=== PATIENT | female | born 1985 | race American Indian/Alaskan Native ===

== ENCOUNTER 2021-03-26 12:21 | Emergency (ER) | payer SELFPAY ==
--- NOTE | 2021-03-26 14:01 | Emergency Department Report ---
ED General Adult HPI - General Chief complaint: Upper Respiratory Infection Stated complaint: HEADACHE/BODY ACHE/NASAL CONGESTION/ FEVER Time Seen by Provider: 03/26/21 13:58 Source: patient Mode of arrival: Ambulatory Limitations: No Limitations - History of Present Illness Initial comments: 36-year-old female patient presents to emergency department with complaints of cough, congestion, myalgias, and sneezing for 2 days. Patient's daughter was recently exhibiting similar symptoms. No current steroid or antibiotic use. Patient did not receive her COVID-19 vaccination series. Patient did not take any medications prior to arrival. Unsure if . Denies fever, headache, neck stiffness, sore throat, vomiting, diarrhea, abdominal pain. Denies all other complaints at this time. ED Review of Systems ROS: Stated complaint: HEADACHE/BODY ACHE/NASAL CONGESTION/ FEVER Other details as noted in HPI Other: GENERAL: Negative for fever. ENT: Positive for nasal congestion and sneezing. CARDIOVASCULAR: Negative for chest pain. PULMONARY: Positive for cough. GASTROINTESTINAL: Negative for abdominal pain. MUSCULOSKELETAL: Positive for myalgias. NEUROLOGICAL: Negative for headache. INTEGUMENTARY: Negative for rash. ED Past Medical Hx - Past Medical History Previous Medical History?: No - Surgical History Additional Surgical History: C SECTION ED Physical Exam - General Limitations: No Limitations - Other Other exam information: General: Awake and alert. No acute distress. Head: Atraumatic, normocephalic. Eyes: EOMI. Pupils are equal and round. Normal sclera and conjunctiva. ENT: Clear rhinorrhea. Oral mucosa is moist. Normal pharyngeal exam. Neck: Supple. No lymphadenopathy. Pulmonary: No respiratory distress. Clear to auscultation bilaterally. Cardiac: Regular rate and rhythm. Pulses are palpable and equal bilaterally. No lower extremity cyanosis or edema. Skin: Warm and dry. No rashes. Abdomen: Soft, non-tender, non-protuberant. No guarding, rigidity, or rebound. Bowel sounds are normal. No organomegaly or masses noted. Back: Normal alignment. No CVA tenderness. Extremities: Symmetrical. Full range of motion intact. Neurological: Alert and oriented, appropriately interactive, no focal deficits. Psych: Cooperative. Appropriate mood and affect. Speech is evenly metered. Thoughts are logically construed. ED Course Vital Signs 03/26/21 12:43 Temperature 99.2 F Pulse Rate 93 H Respiratory 16 Rate Blood Pressure 111/64 O2 Sat by Pulse 100 Oximetry ED Medical Decision Making - Medical Decision Making Patient presents to the emergency department with signs/symptoms suggestive of viral upper respiratory infection. Endorses sick contacts. Patient is afebrile, hemodynamically stable, no hypoxia, no respiratory distress, tolerating oral intake without difficulty. No clinical indication to suggest respiratory compromise or concomitant bacterial infection warranting further diagnostic work-up on an emergent basis at this time. Patient will be treated symptomatically and discharged home to follow-up with primary care provider. Patient expressed understanding and is agreeable to plan of care. Disease tr ansmission precautions discussed. Strict return precautions provided. History, exam, diagnostic testing, and current condition do not suggest worrisome pathology to warrant further testing, continued ED treatment, admission, or surgical evaluation at this point. Given the low probability of a significant medical illness, it would be more likely to result in harm than benefit to perform further testing at this stage. Discussed findings, presumptive diagnosis, need for follow-up and specific signs/symptoms that should prompt immediate return to the emergency department. Instructions were explained in detail to the patient in addition to giving written discharge information. Patient expressed understanding and was given the opportunity to ask questions, all of which were satisfactorily answered prior to discharge home. Critical care attestation.: If time is entered above; I have spent that time in minutes in the direct care of this critically ill patient, excluding procedure time. ED Disposition Clinical Impression: Viral upper respiratory tract infection with cough Disposition: TO HOME OR SELFCARE Is pt being admited?: No Does the pt Need Aspirin: No Condition: Stable Instructions: Viral Respiratory Infection, [id number] Additional Instructions: Take Tylenol every 4 hours as needed for pain. Please make sure you are not before taking any other [id number] cough/cold remedies. Rest. Drink plenty of fluids. Wash hands frequently to prevent disease transmission. Do not share food or drinks with others. Follow-up with primary care provider this week. Call today to schedule an appointment. See referral information below. Return to the emergency department immediately for new or worsening symptoms. Referrals: ELMA MAJANO MD [Staff Physician] - 3-5 Days [facility] [Provider Group] - 3-5 Days Forms: Work/School Release Form(ED) Time of Disposition: 14:01
== END 2021-03-26 14:15 | disposition home or self-care (01) ==
LOC: ED 12:21
CPT/HCPCS: 99282